=== PATIENT | female | born 2005 | race Two or more races ===

== ENCOUNTER 2025-03-04 17:10 | Emergency (ER) | payer OTHER ==
[~2025-03-04] VITALS: Ht 167.6 cm; Wt 65.9 kg
[2025-03-04 17:16] VITALS: BP 105/63; PULSE 82; RESP 18; TEMP 98.3; O2SAT 98
[2025-03-04] MEDS ORDERED: IBUP-1492 PO (18:14)
[2025-03-04] MEDS ORDERED: ACET-3385 PO (18:14)
[2025-03-04] MEDS: ACETAMINOPHEN 500 MG TABLET PO ONE (18:27)
== END 2025-03-04 18:42 | disposition home or self-care (01) ==
LOC: EMS 17:10
DX: S06.0XAA Concussion with loss of consciousness status unknown, initial encounter (principal); X58.XXXA Exposure to other specified factors, initial encounter; Y93.89 Activity, other specified; Y92.89 Other specified places as the place of occurrence of the external cause; Y99.8 Other external cause status
CPT/HCPCS: 99282; Z7502; Z7610

== ENCOUNTER 2025-04-10 21:21 | Emergency (ER) | payer OTHER ==
[~2025-04-10] VITALS: Ht 167.6 cm; Wt 77.3 kg
[~2025-04-10 21:21] MED LIST: ACET-3385 PO; IBUP-1492 PO
[2025-04-10 21:27] VITALS: BP 124/69; PULSE 70; RESP 16; TEMP 98.2; O2SAT 100
[2025-04-10 22:06] LABS: APPEARANCE,URINE CLEAR (CLEAR); GLUCOSE, URINE (UA) NEGATIVE (NEGATIVE); HCG,QUAL URINE NEGATIVE (NEGATIVE); LEUKOCYTE ESTERASE ,URINE SMALL (NEGATIVE); NITRATE,URINE NEGATIVE (NEGATIVE); OCCULT BLOOD,URINE NEGATIVE (NEGATIVE); SPECIFIC GRAVITIY, URINE 1.006 (1.003-1.030)
[2025-04-10 22:19] LABS: SQUAMOUS EPITHELIAL CELL,UR Rare /LPF (None Seen); YEAST,URINE Rare /HPF (None Seen)
[2025-04-10] MEDS: FLUCONAZOLE 150 MG TABLET PO ONE (22:49)
== END 2025-04-10 23:05 | disposition home or self-care (01) ==
LOC: EMS 21:21
DX: B37.31 Acute candidiasis of vulva and vagina (principal); Z79.899 Other long term (current) drug therapy
CPT/HCPCS: 81001; 84703; 87491; 87591; 99283